=== PATIENT | female | born 1940 | race Caucasian/White ===

== ENCOUNTER 2019-01-13 04:22 | Emergency (ER) | payer MEDICARE ==
--- NOTE | 2019-01-13 06:54 | ED ---
Hypertension - HPI Summary HPI Summary: This patient is a 78-year-old female with a history of hypertension and a history of a stroke 11 years ago presenting to the ED with concern for hypertension. Patient states she is under a lot of stress recently as her sister recently 1 week ago. Since that time, she has felt that she has had high blood pressure. She has taken her blood pressure several times at home which has been consistently at 130/80 to 180/90. Last night she took her BP and was noted to be systolic of 212. She takes atenolol and Diltiazem daily and has for 11 years. She states she feels when her BP is high and tends to have PAL or dizziness. She has not had this for several months to years and tends to be high when she is under stress or when she sees her MD. She is concerned for another stroke d/t her high BP. Currently asymptomatic and states she does not currently have dizziness or PAL. - History of Current Complaint Chief Complaint: EDHypertension Stated Complaint: HIGH BP PER PT Time Seen by Provider: 01/13/19 06:28 Hx Obtained From: Patient Onset/Duration: Started Days Ago Timing: Intermittent, Lasting Minutes Aggravating Factor(s): Nothing Associated Signs & Symptoms: Negative - Risk Factors Cardiac Risk Factors: Negative - Allergies/Home Medications Allergies/Adverse Reactions: Allergies Allergy/AdvReac Type Severity Reaction Status Date / Time epinephrine Allergy See Comment Verified 01/13/19 04:29 erythromycin base Allergy Dizziness Verified 01/13/19 04:29 Home Medications: Home Medications Pravastatin Sodium 10 mg PO DAILY 01/13/19 [History Confirmed 01/13/19] PMH/Surg Hx/FS Hx/Imm Hx Previously Healthy: Yes Musculoskeletal History: Denies: Hx Osteoporosis - Cancer History Hx Chemotherapy: No Hx Radiation Therapy: No - Surgical History Surgery Procedure, Year, and Place: HYSTERECTOMY - Immunization History Hx Pertussis Vaccination: No Immunizations Up to Date: Yes Infectious Disease History: No Infectious Disease History: Denies: Traveled Outside the [place] in Last 30 Days - Social History Occupation: Unemployed Lives: With Family Alcohol Use: None Hx Substance Use: No Substance Use Type: Reports: None Hx Tobacco Use: No Smoking Status (MU): Never Smoked Tobacco Review of Systems Negative: Fever, Chills, Fatigue, Skin Diaphoresis Negative: Palpitations, Chest Pain Negative: Shortness Of Breath, Cough Genitourinary: Negative Positive: no symptoms reported, see HPI Negative: Arthralgia, Myalgia Neurological: Other - dizziness All Other Systems Reviewed And Are Negative: Yes Physical Exam Triage Information Reviewed: Yes Vital Signs On Initial Exam: Initial Vitals Temp Pulse Resp BP Pulse Ox 98.6 F 70 16 212/98 99 01/13/19 04:26 01/13/19 04:26 01/13/19 04:26 01/13/19 04:26 01/13/19 04:26 Vital Signs Reviewed: Yes Appearance: Positive: Well-Appearing, No Pain Distress, Well-Nourished Skin: Positive: Warm, Skin Color Reflects Adequate Perfusion Head/Face: Positive: Normal Head/Face Inspection Eyes: Positive: EOMI, MAGUI, Conjunctiva Clear Neck: Positive: Supple, Nontender, No Lymphadenopathy Respiratory/Lung Sounds: Positive: Clear to Auscultation, Breath Sounds Present Cardiovascular: Positive: RRR, Pulses are Symmetrical in both Upper and Lower Extremities Musculoskeletal: Positive: Normal, Strength/ROM Intact Neurological: Positive: Speech Normal Psychiatric: Positive: Normal, Affect/Mood Appropriate AVPU Assessment: Alert Procedures - Sedation Patient Received Moderate/Deep Sedation with Procedure: No Diagnostics - Vital Signs Vital Signs Temp Pulse Resp BP Pulse Ox 01/13/19 06:34 53 19 159/75 97 01/13/19 06:31 58 17 159/75 97 01/13/19 06:00 56 15 95 01/13/19 05:53 67 13 177/65 96 01/13/19 05:24 56 16 159/72 96 01/13/19 05:00 63 21 97 01/13/19 04:54 65 196/93 98 01/13/19 04:52 68 97 01/13/19 04:26 98.6 F 70 16 212/98 99 - Laboratory Result Diagrams: 01/13/19 06:59 01/13/19 06:59 Lab Statement: Any lab studies that have been ordered have been reviewed, and results considered in the medical decision making process. Hypertension Course/Dx - Course Course Of Treatment: Pt evaluated for dizziness yesterday and persistent HTN over the past 2 days. She has been taking her BP more frequently as she has felt dizzy and felt as though she has had HTN. Highest at home 212 systolic. Tends to run 130-180 over the past week. States sister 1 week ago and she has been under more stress recently. She has not seen her MD. Dr. Black is PCP. Continues to take her Atenolol and Diltiazem. Denies any symptoms currently. On arrival, pt BP at 212/98. This reduced to 159/72 without medications. On re-examination, this reduced again spontaneously to 144.73. Labs obtained: all labs WNL. EKG shows sinus bradycardia, which patient states is normal for her. EKG: sinus bradycardia with a rate of 55. Pt stable and asympatomatic. Pt will follow up with Dr. Black within the next week to discuss medications. - Diagnoses Differential Diagnosis/HQI PQRI: Hypertensive Crisis, Hypertensive Urgency, Other - anxiety, stress reaction Provider Diagnoses: Hypertension Discharge ED - Sign-Out/Discharge Documenting (check all that apply): Patient Departure - Discharge Plan Condition: Stable Disposition: HOME Patient Education Materials: Hypertension (ED) Referrals: Sebastián Black MD [Primary Care Provider] - Additional Instructions: Please follow up with Dr. Black concerning your hypertension This is likely a response to extra stress, however if your symptoms remain persistent, you may need a medication change Your EKG and all labs today on exam are within normal limits - Billing Disposition and Condition Condition: STABLE Disposition: Home
[2019-01-13 07:11] LABS: ABS Basophils 0.1 10^3/ul (0-0.2); ABS Eosinophils 0.1 10^3/ul (0-0.6); ABS Lymphocytes 1.2 10^3/ul (1.0-4.8); ABS Monocytes 0.8 10^3/ul (0-0.8); ABS Neutrophils 6.5 10^3/ul (1.5-7.7); Eosinophil % 0.6 %; Hematocrit 43 % (35-47); Hemoglobin 14.6 g/dL (12.0-16.0); Lymphocyte % 14.2 %; Mean Corpuscular HGB Conc 34 g/dL (31-36); Mean Corpuscular Hemoglobin 32 pg (27-31); Mean Corpuscular Volume 94 fL (80-97); Mean Platelet Volume 9.4 fL (7.4-10.4); Platelet Count 239 10^3/uL (150-450); Red Blood Count 4.55 10^6 /uL (3.70-4.87); Red Cell Distribution Width 14 % (10-15); White Blood Count 8.6 10^3/uL (3.5-10.8)
[2019-01-13 07:12] LABS: Urine Appearance Clear; Urine Bilirubin Negative (Negative); Urine Blood Negative (Negative); Urine Color Straw; Urine Glucose Negative (Negative); Urine Ketones Negative (Negative); Urine Nitrite Negative (Negative); Urine Protein Negative (Negative); Urine Specific Gravity 1.006 (1.010-1.030); Urine Urobilinogen Negative (Negative)
[2019-01-13 07:24] LABS: Albumin 4.3 g/dL (3.2-5.2); Albumin/Globulin Ratio 1.7 (1-3); BUN/Creatinine Ratio 22.9 (8-20); Calcium 9.7 mg/dL (8.6-10.3); EGFR African American 98.2 (>60); EGFR Non-African American 81.1 (>60); Globulin 2.6 g/dL (2-4); Total Bilirubin 0.6 mg/dL (0.2-1.0); Total Protein 6.9 g/dL (6.4-8.9)
[2019-01-13 08:12] VITALS: BP 144/73
== END 2019-01-13 08:10 | disposition home or self-care (01) ==
LOC: ED 04:22
DX: I10 Essential (primary) hypertension (principal); R42 Dizziness and giddiness; R00.1 Bradycardia, unspecified; Z88.1 Allergy status to other antibiotic agents; Z88.8 Allergy status to other drugs, medicaments and biological substances
CPT/HCPCS: 36415; 80053; 81003; 83605; 84484; 85025; 93005; 99283

== ENCOUNTER 2022-04-30 07:35 | Observation (INO) ==
[2022-04-30] MEDS ORDERED: Midazolam 5 mg/5 ml VIAL 1 mg/ml 5 ml VIAL (5 mg) ONE (08:46)
[2022-04-30] MEDS ORDERED: VERAPAMIL 2.5 MG/ML 2 ML VIAL ** 5 mg/2 ml ONE (08:47)
[2022-04-30] MEDS ORDERED: Iohexol 350 (CONTRAST) 100 ML PAK IV ONE (08:47)
[2022-04-30] MEDS ORDERED: Heparin 1,000 UNIT/ML 10 ml (10,000 UNITS) CATHLAB/DIALYSIS ONE (08:47)
[2022-04-30] MEDS ORDERED: fentaNYL 100 mcg/2 ml 50 MCG/ML VIAL ONE (08:47)
[2022-04-30] MEDS ORDERED: nitroGLYCERIN DRIP 25,000 MCG/250 ML BTL ONE (08:47)
[2022-04-30] MEDS ORDERED: Lidocaine 1% MPF 5 ML VIAL ONE (08:47)
[2022-04-30] MEDS ORDERED: Heparin 2 UNITS/ML 1000 mls 2,000 ML IV ONE (08:47)
[2022-04-30] MEDS ORDERED: Bivalirudin 250 MG VIAL ONE (09:53)
[2022-04-30] MEDS ORDERED: Heparin 2 UNITS/ML 1000 mls 1,000 ML IV ONE (10:05)
[2022-04-30] MEDS ORDERED: NS 0.9% 1000 ml BAG 1,000 ML IV SCH (11:00)
[2022-05-01 06:15] LABS: ABS Basophils 0.1 10^3/ul (0-0.2); ABS Eosinophils 0.2 10^3/ul (0-0.6); ABS Lymphocytes 1.3 10^3/ul (1.0-4.8); ABS Neutrophils 4.9 10^3/ul (1.5-7.7); Eosinophil % 2.4 %; Hematocrit 39 % (35-47); Hemoglobin 12.8 g/dL (12.0-16.0); Lymphocyte % 17.3 %; Mean Corpuscular HGB Conc 33 g/dL (31-36); Mean Corpuscular Hemoglobin 31 pg (27-31); Mean Corpuscular Volume 94 fL (80-97); Mean Platelet Volume 9.1 fL (7.4-10.4); Nucleated Red Blood Cells % 0.1; Platelet Count 287 10^3/uL (150-450); Red Blood Count 4.13 10^6 /uL (3.70-4.87); Red Cell Distribution Width 15 % (10-15); White Blood Count 7.4 10^3/uL (3.5-10.8)
[2022-05-01 06:48] LABS: Cholesterol 169 mg/dL; HDL Cholesterol 32.5 mg/dL; LDL Cholesterol 83 mg/dL; Magnesium 2.1 mg/dL (1.9-2.7); Triglycerides 266 mg/dL
[2022-05-01 07:39] LABS: Blood Urea Nitrogen 13 mg/dL (6-24); CO2 Carbon Dioxide 25 mmol/L (22-32); Calcium 8.8 mg/dL (8.6-10.3); Chloride 107 mmol/L (101-111); Creatinine, Serum 0.88 mg/dL (0.51-0.95); Glucose 114 mg/dL (70-100); Sodium 138 mmol/L (135-145); eGFR CKD-EPI 66.4 (>60)
[2022-05-01 07:43] LABS: Anion Gap 6 mmol/L (2-11)
[2022-05-01 11:16] VITALS: BP 147/60
== END 2022-05-01 13:05 | disposition home or self-care (01) ==
LOC: CHICATH 07:35 → INTOOBSV 10:48 → ICU 10:48

== ENCOUNTER 2022-11-03 21:37 | Observation (INO) ==
[2022-11-03 22:27] LABS: ABS Basophils 0.1 10^3/uL (0.0-0.1); ABS Lymphocytes 0.9 10^3/uL (1.0-4.8); ABS Neutrophils 14.2 10^3/uL (1.5-7.6); ABS Nucleated RBC 0.01 10^3/ul; Eosinophil % 0.2 %; Hematocrit 38.2 % (35-45); Hemoglobin 13.1 g/dL (11.5-14.3); Lymphocyte % 5.8 %; Mean Corpuscular Hemoglobin 31.6 pg (27-33); Mean Corpuscular Hgb Conc 34.3 g/dL (31-36); Mean Corpuscular Volume 92.2 fL (80-97); Mean Platelet Volume 9.5 fL (7.5-11.2); Platelet Count 283 10^3/uL (150-450); Red Blood Count 4.14 10^6/uL (3.63-4.92); Red Cell Distribution Width 14.5 % (12-17); White Blood Count 16.2 10^3/uL (3.8-11.8)
[2022-11-03 22:36] LABS: INR 0.96 (0.83-1.13)
[2022-11-03 22:46] LABS: Albumin 4.7 g/dL (3.2-5.2); Albumin/Globulin Ratio 1.8 (1-3); Calcium 9.8 mg/dL (8.6-10.3); Creatinine, Serum 1.06 mg/dL (0.51-0.95); Globulin 2.6 g/dL (2-4); Total Bilirubin 0.6 mg/dL (0.2-1.0); Total Protein 7.3 g/dL (6.4-8.9); eGFR CKD-EPI 52.8 (>60)
[2022-11-03] MEDS ORDERED: NS 0.9% 1000 ml BAG 1,000 ML IV ONE (23:02)
[2022-11-03] MEDS ORDERED: Ondansetron 4 mg VIAL 2 MG/ML 2 ml VIAL IV ONE (23:02)
[2022-11-04 00:06] LABS: Magnesium 1.7 mg/dL (1.9-2.7)
[2022-11-04] MEDS ORDERED: Iodixanol (CONTRAST) 320 MG/ML 100 ML SDV IV ONE (00:08)
[2022-11-04] MEDS ORDERED: Piperacillin/Tazobac 3.375 BAG 3.375 GM/100 ML BAG IV ONE (01:50)
[2022-11-04] MEDS ORDERED: Ondansetron 4 mg VIAL 2 MG/ML 2 ml VIAL IV PRN ×2 (01:51→11:34)
[2022-11-04] MEDS ORDERED: Morphine 4 MG/ML VIAL (1 ml) IV PRN ×2 (01:51→09:01)
[2022-11-04] MEDS ORDERED: Zosyn per Pharmacy NOTE FOLLOW UP SCH (02:00)
[2022-11-04] MEDS ORDERED: Lactated Ringers 1000 ml BAG 1,000 ML IV SCH ×2 (02:00→11:39)
[2022-11-04] MEDS ORDERED: Bupivacaine 0.5% 50 ML MDV VIAL ONE (07:58)
[2022-11-04] MEDS: ZOSYN 3.375 GM Q8H per EXTENDED INFUSION IV SCH ×2 (08:05→15:00)
[2022-11-04] MEDS ORDERED: fentaNYL 250 mcg/5 ml 50 MCG/ML 5 ml VIAL (250 MCG) ONE (08:59)
[2022-11-04] MEDS ORDERED: Ondansetron 4 mg VIAL 2 MG/ML 2 ml VIAL ONE (08:59)
[2022-11-04] MEDS ORDERED: Succinylcholine 200 mg VIAL 20 mg/ml 10 ml VIAL (200 mg) ONE (08:59)
[2022-11-04] MEDS ORDERED: Dexamethasone IV 4 MG/ML VIAL 1 ml VIAL ONE (08:59)
[2022-11-04] MEDS ORDERED: Propofol 10 MG/ML 20 ML BTL ONE (08:59)
[2022-11-04] MEDS ORDERED: Metoclopramide 5 MG/ML VIAL (10 mg) ONE (08:59)
[2022-11-04] MEDS ORDERED: Acetaminophen IV 1 GM/100ML 1,000 MG/100 ML BAG IV ONE (08:59)
[2022-11-04] MEDS ORDERED: Rocuronium 50 mg VIAL 10 mg/ml 5 ml VIAL (50 mg) ONE (08:59)
[2022-11-04] MEDS ORDERED: Naloxone 0.4 mg VIAL 0.4 mg/ml 1 ml VIAL IV PRN (09:01)
[2022-11-04] MEDS ORDERED: fentaNYL 100 mcg/2 ml 50 MCG/ML VIAL IV PRN (09:01)
[2022-11-04] MEDS ORDERED: Prochlorperazine 5 mg/ml 2 ml VIAL (10 mg) IV PRN (09:01)
[2022-11-04] MEDS ORDERED: hydrALAZINE 20 mg/ml 1 ML Vial IV ONE (10:24)
[2022-11-04] MEDS ORDERED: HYDROmorphone 0.5 MG/0.5 ML SYRINGE IV SLOW PU PRN (11:34)
[2022-11-04] MEDS ORDERED: Acetaminophen IV 1 GM/100ML 1,000 MG/100 ML BAG IV PRN (11:34)
[2022-11-04] MEDS ORDERED: Dextrose 50% Syringe 50 ml 25 GM/50 ML SYRINGE IV PUSH PRN (11:40)
[2022-11-04] MEDS ORDERED: hydrALAZINE 20 mg/ml 1 ML Vial IV IV SLOW PU PRN (11:47)
[2022-11-04] MEDS ORDERED: Calcium Carb (TUMS) 500 mg CHEW TAB PO PRN (12:02)
[2022-11-05 07:02] LABS: ABS Lymphocytes 1.4 10^3/uL (1.0-4.8); ABS Monocytes 1.3 10^3/uL (0.0-0.9); ABS Neutrophils 11.7 10^3/uL (1.5-7.6); Eosinophil % 0.3 %; Hematocrit 32.8 % (35-45); Hemoglobin 11.2 g/dL (11.5-14.3); Lymphocyte % 9.9 %; Mean Corpuscular Hemoglobin 32.2 pg (27-33); Mean Corpuscular Hgb Conc 34.2 g/dL (31-36); Mean Platelet Volume 9.6 fL (7.5-11.2); Platelet Count 240 10^3/uL (150-450); Red Blood Count 3.49 10^6/uL (3.63-4.92); Red Cell Distribution Width 14.6 % (12-17); White Blood Count 14.5 10^3/uL (3.8-11.8)
[2022-11-05 07:19] LABS: Calcium 8.4 mg/dL (8.6-10.3); Creatinine, Serum 1.27 mg/dL (0.51-0.95); Magnesium 1.9 mg/dL (1.9-2.7); Potassium 3.9 mmol/L (3.5-5.0); eGFR CKD-EPI 42.5 (>60)
[2022-11-05] MEDS ORDERED: Enoxaparin 40 MG/0.4 ML SYR SUBCUT SCH (09:00)
[2022-11-06 05:45] LABS: ABS Basophils 0.1 10^3/uL (0.0-0.1); ABS Eosinophils 0.4 10^3/uL (0.0-0.5); ABS Monocytes 1.1 10^3/uL (0.0-0.9); ABS Neutrophils 6.6 10^3/uL (1.5-7.6); Hematocrit 31.3 % (35-45); Lymphocyte % 19.8 %; Mean Corpuscular Hemoglobin 32.4 pg (27-33); Mean Corpuscular Volume 92.8 fL (80-97); Mean Platelet Volume 9.5 fL (7.5-11.2); Platelet Count 215 10^3/uL (150-450); Red Blood Count 3.38 10^6/uL (3.63-4.92); Red Cell Distribution Width 14.3 % (12-17); White Blood Count 10.2 10^3/uL (3.8-11.8)
[2022-11-06 06:03] LABS: Calcium 8.7 mg/dL (8.6-10.3); Creatinine, Serum 1.14 mg/dL (0.51-0.95); Potassium 3.7 mmol/L (3.5-5.0); eGFR CKD-EPI 48.4 (>60)
[2022-11-06 09:11] VITALS: BP 154/84
== END 2022-11-06 11:00 | disposition home or self-care (01) ==
LOC: EDHOLD 21:37 → ED 21:37 → EDHOLD 11-04 09:00 → SSU 11-04 12:19
PROVIDERS: ADMIT Surgery Surgical Critical Care; ATTEND Surgery Surgical Critical Care

== ENCOUNTER 2022-11-09 15:30 | Observation (INO) ==
[2022-11-09] MEDS ORDERED: Iodixanol (CONTRAST) 320 MG/ML 100 ML SDV IV ONE (16:00)
[2022-11-09] MEDS ORDERED: Calcium Carb (TUMS) 500 mg CHEW TAB PO PRN (19:05)
[2022-11-09] MEDS ORDERED: Morphine 2 MG/ML SYRINGE IV PRN (19:05)
[2022-11-09] MEDS ORDERED: Dextrose 50% Syringe 50 ml 25 GM/50 ML SYRINGE IV PUSH PRN (19:11)
[2022-11-09] MEDS: Lactated Ringers 1000 ml BAG 1,000 ML IV SCH (19:32)
[2022-11-10] MEDS: Lactated Ringers 1000 ml BAG 1,000 ML IV SCH (00:54)
[2022-11-10 06:51] LABS: ABS Basophils 0.1 10^3/uL (0.0-0.1); ABS Eosinophils 0.4 10^3/uL (0.0-0.5); ABS Lymphocytes 2.1 10^3/uL (1.0-4.8); ABS Monocytes 0.9 10^3/uL (0.0-0.9); ABS Neutrophils 7.1 10^3/uL (1.5-7.6); Eosinophil % 3.5 %; Hematocrit 25.8 % (35-45); Hemoglobin 9.1 g/dL (11.5-14.3); Lymphocyte % 20.2 %; Mean Corpuscular Hemoglobin 31.7 pg (27-33); Mean Corpuscular Hgb Conc 35.1 g/dL (31-36); Mean Corpuscular Volume 90.3 fL (80-97); Mean Platelet Volume 9.3 fL (7.5-11.2); Platelet Count 222 10^3/uL (150-450); Red Blood Count 2.86 10^6/uL (3.63-4.92); Red Cell Distribution Width 15.4 % (12-17); White Blood Count 10.6 10^3/uL (3.8-11.8)
[2022-11-10 07:01] LABS: Calcium 8.3 mg/dL (8.6-10.3); Creatinine, Serum 1.01 mg/dL (0.51-0.95); Potassium 3.8 mmol/L (3.5-5.0); eGFR CKD-EPI 55.9 (>60)
[2022-11-11 06:49] LABS: Calcium 8.1 mg/dL (8.6-10.3); Creatinine, Serum 1.06 mg/dL (0.51-0.95); eGFR CKD-EPI 52.8 (>60)
[2022-11-11 06:50] LABS: ABS Basophils 0.1 10^3/uL (0.0-0.1); ABS Eosinophils 0.4 10^3/uL (0.0-0.5); ABS Lymphocytes 1.8 10^3/uL (1.0-4.8); ABS Monocytes 0.9 10^3/uL (0.0-0.9); ABS Nucleated RBC 0.01 10^3/ul; Eosinophil % 4.6 %; Hematocrit 25.5 % (35-45); Hemoglobin 8.9 g/dL (11.5-14.3); Mean Corpuscular Hemoglobin 31.8 pg (27-33); Mean Corpuscular Hgb Conc 34.8 g/dL (31-36); Mean Corpuscular Volume 91.4 fL (80-97); Mean Platelet Volume 9.9 fL (7.5-11.2); Nucleated Red Blood Cells % 0.1 /100 WBC (0.0-0.4); Platelet Count 173 10^3/uL (150-450); Red Blood Count 2.79 10^6/uL (3.63-4.92); Red Cell Distribution Width 15.1 % (12-17); White Blood Count 9.2 10^3/uL (3.8-11.8)
[2022-11-11 10:18] VITALS: BP 129/66
== END 2022-11-11 11:30 | disposition home or self-care (01) ==
LOC: ED 15:30 → EDHOLD 15:30 → SSU 23:39
PROVIDERS: ADMIT Surgery Surgical Critical Care; ATTEND Surgery Surgical Critical Care